=== PATIENT | male | born 1985 | race African-American/Black ===

== ENCOUNTER 2018-04-24 17:13 | Emergency (ER) | payer MEDICAID ==
[~2018-04-24] VITALS: Ht 175.3 cm; Wt 71.0 kg
[2018-04-24] MEDS ORDERED: KETOROLAC 60MG/2ML VIAL IM ONE (18:30)
[2018-04-24 19:04] VITALS: BP 120/68
== END 2018-04-24 19:02 | disposition home or self-care (01) ==
LOC: ER 17:13
DX: M54.6 Pain in thoracic spine (principal); M25.512 Pain in left shoulder; M79.1 Myalgia; F17.200 Nicotine dependence, unspecified, uncomplicated; Z86.19 Personal history of other infectious and parasitic diseases; W17.2XXA Fall into hole, initial encounter; Y93.89 Activity, other specified; Y92.488 Other paved roadways as the place of occurrence of the external cause
CPT/HCPCS: 72070; 96372; 99284; J1885

== ENCOUNTER 2018-05-18 12:22 | Emergency (ER) | payer MEDICAID ==
[~2018-05-18] VITALS: Ht 165.1 cm; Wt 70.0 kg
[2018-05-18] MEDS ORDERED: MORPHINE SULFATE 4 MG/ML CPJ (NOT FOR IM USE) IV STA (14:45)
[2018-05-18] MEDS ORDERED: ONDANSETRON HCL 4MG/2ML INJ IV STA (14:45)
[2018-05-18] MEDS ORDERED: SODIUM CHLORIDE 0.9% 1,000 ML IV ONE (14:45)
[2018-05-18 15:18] LABS: BASOPHILS % 0.5 % (0.0-2.0); EOSINOPHILS % 3.7 % (0.0-5.0); HEMATOCRIT. 43.1 % (42.0-52.0); HEMOGLOBIN. 14.6 g/dL (14.0-18.0); LYMPHOCYTES % 26.2 % (20.0-50.0); MEAN CORPUSCULAR HEMOGLOBIN 29.4 pg (28.0-32.0); MEAN CORPUSCULAR VOLUME 86.7 fL (80.0-94.0); MEAN PLATELET VOLUME 7.5 fl (7.4-10.4); MONOCYTES % 9.2 % (2.0-8.0); NEUTROPHILS % 60.4 % (40.0-76.0); PLATELET 291 x1000/uL (130-400); RED BLOOD CELL COUNT 4.97 mill/uL (4.7-6.1); RED CELL DISTRIBUTION WIDTH 13.1 % (11.6-14.6)
[2018-05-18 15:22] LABS: CHLORIDE 103 mEq/L (98-107)
[2018-05-18 15:25] LABS: PROTHROMBIN TIME 10.4 sec (9.1-11.1)
[2018-05-18 15:26] LABS: ETHANOL BLOOD < 10 mg/dL
[2018-05-18 18:20] VITALS: BP 140/79
== END 2018-05-18 18:27 | disposition home or self-care (01) ==
LOC: ER 15:09
DX: R11.2 Nausea with vomiting, unspecified (principal); R10.31 Right lower quadrant pain; J02.9 Acute pharyngitis, unspecified; K92.1 Melena; R68.83 Chills (without fever); F17.200 Nicotine dependence, unspecified, uncomplicated
CPT/HCPCS: 36415; 74176; 80053; 83690; 85025; 85610; 87040; 96361; 96374; 96375; 99285; G0482; J2270; J2405; J7030

== ENCOUNTER 2020-11-02 19:57 | Emergency (ER) | payer MEDICAID ==
[~2020-11-02] VITALS: Ht 165.1 cm; Wt 64.0 kg
[2020-11-02 20:29] VITALS: BP 120/67
== END 2020-11-03 01:00 | disposition home or self-care (01) ==
LOC: ER 19:57
DX: S00.06XA Insect bite (nonvenomous) of scalp, initial encounter (principal); W57.XXXA Bitten or stung by nonvenomous insect and other nonvenomous arthropods, initial encounter; Y93.89 Activity, other specified; Y92.013 Bedroom of single-family (private) house as the place of occurrence of the external cause
CPT/HCPCS: 99281